=== PATIENT | female | born 1990 | race American Indian/Alaskan Native ===

== ENCOUNTER 2017-10-22 09:49 | Inpatient (IN) | payer OTHER ==
--- NOTE | 2017-10-21 17:50 | History and Physical Report ---
History of Present Illness Date of examination: 10/22/17 Date of admission: 10/22/17 Chief complaint: scheduled repeat csec History of present illness: This is a 27 yo EDC 10/26/17 at 39+4 weeks here for repeat csec. Patient is a patient of [facility] since 9 weeks but has had non compliance from 17-30 weeks. She has a hx of sickle cell trait, anemia and GBS +, hx of depression. Past History Past Medical History: other (depression) Past Surgical History: section Family/Genetic History: diabetes Social history: no significant social history, single. denies: smoking, alcohol abuse, prescription drug abuse - Obstetrical History Expected Date of Delivery: 10/26/17 Actual Gestation: 39 Week(s) 2 Day(s) : 3 Para: 2 Hx # Term Pregnancies: 0 Number of Pregnancies: 0 Spontaneous Abortions: 0 Induced : 0 Number of Living Children: 2 Review of Systems All systems: negative - Physical Exam Breasts: Positive: normal Cardiovascular: Regular rate, Normal S1 Lungs: Positive: Clear to auscultation, Normal air movement Abdomen: Positive: normal appearance, soft, guarding, normal bowel sounds. Negative: distention, tenderness Vulva: both: normal Vagina: Positive: normal moisture Uterus: Positive: normal size Anus/Rectum: Positive: normal perianal skin Extremities: Positive: normal Deep Tendon Reflex Grade: Normal +2 Results All other labs normal. Assessment and Plan A/P IUP 39+2 weeks scheduled repeat csec discussed r/b/a reviewed of repeat csec
[2017-10-22] MEDS: NORMOSOL-R PH 7.4 1,000 ML IV SCH ×3 (10:15→11:36)
[2017-10-22] MEDS ORDERED: REGLAN IV NR (10:30)
[2017-10-22] MEDS ORDERED: BICITRA PO NR (10:30)
[2017-10-22] MEDS ORDERED: PEPCID IV NR (10:30)
[2017-10-22] MEDS ORDERED: PITOCin/NS 20 UNIT/1000ML DRIP 20 UNITS/1,000 ML BAG IV SCH ×2 (10:30→13:00)
[2017-10-22 10:37] LABS: Hematocrit 33.6 % (30.3-42.9); Hemoglobin 11.3 gm/dl (10.1-14.3); Mean Corpuscular HGB Conc 34 % (30-34); Mean Corpuscular Hemoglobin 27 pg (28-32); Mean Corpuscular Volume 80 fl (79-97); Platelet Count 219 K/mm3 (140-440); Red Blood Count 4.22 M/mm3 (3.65-5.03); Red Cell Distribution Width 15.3 % (13.2-15.2)
[2017-10-22] MEDS ORDERED: ANCEF/STERILE WATER 2 GM/20 ML IV ONE (10:58)
[2017-10-22] MEDS ORDERED: ANCEF/STERILE WATER 2 GM/20 ML IV NR (11:00)
--- NOTE | 2017-10-22 11:07 | Anesthesia Consultation ---
Anesthesia Consult and Med Hx Date of service: 10/22/17 - Airway Anesthetic Teeth Evaluation: Good ROM Head & Neck: Adequate Mental/Hyoid Distance: Adequate Mallampati Class: Class II Intubation Access Assessment: Probably Good - Pre-Operative Health Status ASA Pre-Surgery Classification: ASA2 Proposed Anesthetic Plan: Epidural, Spinal - Pulmonary Hx Asthma: No COPD: No Hx Pneumonia: No - Cardiovascular System Hx Hypertension: No - Central Nervous System Hx Seizures: No Hx Psychiatric Problems: No - Endocrine Hx Renal Disease: No Hx End Stage Renal Disease: No Hx Hypothyroidism: Yes Hx Hyperthyroidism: No - Hematic Hx Anemia: Yes Hx Sickle Cell Disease: No - Other Systems Hx Alcohol Use: No
[2017-10-22] MEDS ORDERED: DILAUDID IV PRN (11:08)
[2017-10-22] MEDS ORDERED: PHENERGAN PR PRN (11:08)
[2017-10-22] MEDS ORDERED: NARCAN 0.4 MG/1 ML IV PRN ×2 (11:08→13:00)
[2017-10-22] MEDS ORDERED: PHENERGAN PO PRN (11:08)
[2017-10-22] MEDS ORDERED: ZOFRAN IV PRN (11:08)
[2017-10-22] MEDS ORDERED: BENADRYL IV PRN (11:08)
--- NOTE | 2017-10-22 11:08 | Anesthesia Day of Surgery ---
Anesthesia Day of Surgery - Day of Surgery Patient Examined: Yes Patient H&P Reviewed: Yes Patient is NPO: Yes
[2017-10-22] MEDS ORDERED: NEO SYNEPHRINE/NS Syringe(OR USE) IV ONE (12:00)
[2017-10-22] MEDS ORDERED: SODIUM CHLORIDE FLUSH SYRINGE 10 ML IV SCH (12:00)
[2017-10-22] MEDS ORDERED: WATER FOR IRRIG STERILE IR ONE (12:07)
[2017-10-22] MEDS ORDERED: NACL 0.9% IR ONE (12:07)
[2017-10-22] MEDS ORDERED: ASTRAMORPH PF 10MG/10ML ONE (12:40)
[2017-10-22] MEDS ORDERED: NACL 0.9% 1000 ML 1,000 ML ONE (12:51)
[2017-10-22] MEDS ORDERED: SODIUM CHLORIDE FLUSH SYRINGE 10 ML IV NR (13:00)
[2017-10-22] MEDS ORDERED: ANUCORT-HC PR PRN (13:00)
[2017-10-22] MEDS ORDERED: NORCO 5/325 PO PRN (13:00)
[2017-10-22] MEDS ORDERED: LANSINOH TP PRN (13:00)
[2017-10-22] MEDS ORDERED: MYLICON PO PRN (13:00)
[2017-10-22] MEDS ORDERED: MILK OF MAGNESIA PO PRN (13:00)
[2017-10-22] MEDS ORDERED: PERCOCET 5/325 PO PRN (13:00)
[2017-10-22] MEDS ORDERED: TUCKS PAD TP PRN (13:00)
--- NOTE | 2017-10-22 13:13 | Operative Report ---
Operative Report Operative Report: DATE OF PROCEDURE: 10/22/17 PRE-PROCEDURE DIAGNOSIS: A 27-year-old 3, para 2001 with history of previous section. POST-PROCEDURE DIAGNOSIS: A (XX)-year-old 3, para 2001 with history of previous section PROCEDURE PERFORMED: Repeat section SURGEON: Lizzeth Sosa MD ANESTHESIA: Spinal ESTIMATED BLOOD LOSS: Approximately 800 mL. FINDINGS: Male infant born weighing 7 pounds 5 ounces with Apgars of 8 and 8. DESCRIPTION OF PROCEDURE: The patient was taken to the operating room and given spinal and anesthesia was found to be adequate. The patient was prepped and draped in the usual sterile fashion. An elliptical incision was made over the previous keloid scar and removed. A Bovie was used to transect the subcutaneous tissue to the fascia, which was dissected laterally with curved Lewis scissors. The Ivonne clamps were used to grasp the superior and inferior portions of the fascial incisions and subsequently dissected off with a Bovie and bluntly. The rectus abdominal muscles were divided in the midline. The Taurus O retractor was placed in the incision. The vesicouterine peritoneum was identified, transected, creating the bladder flap. the baby could be visulaized through uterus. A scalpel was used to make a transverse incision in the low uterine segment and extended laterally with hand manipulation. . The head was delivered atraumatically. Mouth and nares were suctioned at the incision. The posterior shoulder was delivered followed by the anterior shoulder and entire body. The cord was clamped twice and cut in between. The was handed off to the awaiting magazine keeper. The placental delivery was spontaneously intact 3-vessel cord. Twenty units of Pitocin in 1 liter of LR was given after placental delivery. The hysterotomy was repaired with 0 vicryl in a running locked fashion. Hemostasis was assured with Tissel and surgicel. . The pelvis was copiously irrigated with warm normal saline. Interceed was placed on the hysterotomy repair. The fascia was reapproximated with 0 PDS in a running fashion. The skin was closed with Jb needle. . The patient tolerated the procedure and was taken to the recovery room in stable condition.
[2017-10-22] MEDS: TORADOL IV PRN (13:20)
[2017-10-22] MEDS: D5LR 1,000 ML IV SCH (18:32)
[2017-10-22] MEDS: ZOLOFT PO SCH (20:31)
[2017-10-23 01:20] LABS: Hematocrit 28.6 % (30.3-42.9); Hemoglobin 9.5 gm/dl (10.1-14.3)
[2017-10-23] MEDS: D5LR 1,000 ML IV SCH (02:06)
[2017-10-23] MEDS: TORADOL IV PRN (04:14)
--- NOTE | 2017-10-23 08:02 | Progress Note ---
Assessment and Plan O: VSS AF PP H/H: 9.5/28.6 A: Stable POD #1 S/P third repeat C/S Anemia P: Iron Routine PP orders Subjective - Subjective Date of service: 10/23/17 Patient reports: appetite normal, voiding normally, pain well controlled, flatus , ambulating normally, other (tolerating soft diet w/o N/V, requesting regular tray) : doing well, nursing well, bottle feeding Objective - Vital Signs Latest vital signs: Vital Signs Temp Pulse Resp BP BP Pulse Ox 10/23/17 04:25 98.4 F 84 20 98/52 10/23/17 00:00 98.1 F 78 20 100/56 10/22/17 20:10 98.2 F 83 20 129/78 10/22/17 14:05 80 10 L 96/51 98 10/22/17 14:00 97.7 F 78 12 98/55 97 10/22/17 13:55 77 10 L 100/55 96 10/22/17 13:50 73 11 L 98/55 97 10/22/17 13:45 77 13 97/52 97 10/22/17 13:40 77 19 97/57 98 10/22/17 13:35 80 19 98/57 98 10/22/17 13:30 81 12 100/57 98 10/22/17 13:25 79 11 L 102/63 98 10/22/17 13:20 96.0 F L 84 11 L 102/56 99 10/22/17 13:15 89 13 104/59 100 10/22/17 13:10 87 20 109/55 100 10/22/17 13:05 95 H 9 L 100/50 100 10/22/17 13:03 100 10/22/17 11:17 109 H 100 10/22/17 11:12 79 100 10/22/17 11:06 98.1 F 10/22/17 10:51 88 100 10/22/17 10:46 92 H 98 10/22/17 10:41 80 100 10/22/17 10:39 96 H 94 10/22/17 10:36 79 100 10/22/17 10:31 68 100 10/22/17 10:30 85 94 Intake and Output 03/28/18 03/29/18 03/29/18 22:59 06:59 14:59 Intake Total 365 1185.833 Output Total 275 1000 Balance 90 185.833 Intake: IV 125 945.833 D5lr 1,000 ml @ 125 mls/ 945.833 hr IV DIRECT ODETTE Rx#: [id number] Left Forearm 125 Oral 240 240 Output: Urine 275 1000 Indwelling Catheter 275 1000 Other: Total, Intake Amount 240 240 Total, Output Amount 275 400 - Exam Breasts: Present: deferred Lungs: Present: Normal air movement Abdomen: Present: normal appearance, soft. Absent: distention, tenderness Uterus: Present: normal, firm, fundal height below umbilicus (3 below U, ML). Absent: bogginess, tenderness Extremities: Absent: edema Incision: Present: normal, dry, intact, dressed - Labs Labs: Abnormal lab results 10/22/17 10/23/17 Range/Units 10:15 01:05 Hgb 9.5 L (10.1-14.3) gm/dl Hct 28.6 L (30.3-42.9) % MCH 27 L (28-32) pg RDW 15.3 H (13.2-15.2) %
[2017-10-23] MEDS ORDERED: FEOSOL PO SCH (10:00)
--- NOTE | 2017-10-23 10:26 | Query-Anemia ---
Kuldip Chacko Date:__10/23/2017 Shank Taper/CARLOS ALBERTO:____Mignon Phone#:__[phone] Exercise your independent professional judgment when responding to this query. Questions asked do not imply a particular answer is desired or expected. We greatly appreciate your clarification on this issue. Clinical Documentation States: 27 Year old female was admitted repeat [facility]. The Operative report on 10/22/2017 states "ESTIMATED BLOOD LOSS: Approximately 800 mL." Clinical Findings Show: 10/22 10/23 Hgb 11.3 9.5 Hct 33.6 28.6 Etiology: [ x] Anemia due to acute blood loss [ ] Anemia due to chronic blood loss [ ] Anemia secondary to ESRD [ ] Anemia secondary to neoplastic disease [ ] Iron deficiency anemia due to malabsorption [ ] GI Bleed from: [ ] Anemia of chronic disease ,Other: [ ] Precipitous Drop in Hemoglobin [ ] Precipitous Drop in Hematocrit [ ] Other: [ ] Unable to determine [ ] Comment/Explanation: Present on Admission: [ ] Yes (Y) [ ] Clinically undeterminable (W) [ ] No (N) Please also document response in your Progress Notes and/or Discharge Summary and indicate if the condition was present on admission. MELISSA
[2017-10-23] MEDS: FEOSOL PO SCH ×2 (10:57→21:17)
[2017-10-23] MEDS: PRENATAL VITAMIN PO SCH (10:57)
[2017-10-23] MEDS: ZOLOFT PO SCH (10:57)
[2017-10-23] MEDS ORDERED: BOOSTRIX IM ONE (13:01)
[2017-10-23] MEDS ORDERED: M-M-R II VACCINE SUB-Q ONE (13:01)
[2017-10-23] MEDS: MOTRIN PO PRN ×2 (16:25→23:10)
[2017-10-24] MEDS: FEOSOL PO SCH (09:19)
[2017-10-24] MEDS: PRENATAL VITAMIN PO SCH (09:19)
[2017-10-24] MEDS: ZOLOFT PO SCH (09:20)
[2017-10-24] MEDS: MOTRIN PO PRN (12:02)
--- NOTE | 2017-10-24 15:51 | Progress Note ---
Assessment and Plan A: POD#2 s/p repeat section, asymptomatic anemia P: Discharge home per pt request with follow up in [address] Sosa Subjective - Subjective Date of service: 10/24/17 Principal diagnosis: s/p repeat section Interval history: No overnight events. Pt strongly requesting hospital discharge. Patient reports: appetite normal, voiding normally, pain well controlled, flatus , ambulating normally, no bowel movement, no nauseated : doing well Objective - Vital Signs Latest vital signs: Vital Signs Temp Pulse Resp BP BP Pulse Ox 10/24/17 08:28 98.4 F 78 18 93/59 98 10/24/17 00:00 98.0 F 72 20 101/73 10/23/17 16:07 99.0 F 73 20 102/63 97 Intake and Output 10/24/17 10/24/17 10/24/17 06:59 14:59 22:59 Other: # Voids Indwelling Catheter 1 - Exam Breasts: Present: deferred Cardiovascular: Present: Regular rate Lungs: Present: Clear to auscultation Abdomen: Present: soft Uterus: Present: fundal height below umbilicus Extremities: Present: normal Incision: Present: intact
--- NOTE | 2017-10-24 15:54 | Discharge Summary ---
Providers - Providers Date of Admission: 10/22/17 09:49 Date of discharge: 10/24/17 Attending physician: ROSIO SOSA MD 10/22/17 13:03 Consult to Mental Health [CONS] Urgent Reason For Exam: hx of pp depression s/p repeat csec on zoloft Place consult to:: psych Notified:: [phone] Was contact made?: No Primary care physician: ROSIO SOSA MD Hospitalization Reason for admission: section Delivery: Procedure: section, repeat low transverse Procedure details: Please see operative note. Incision: intact Other procedures: none complications: none Discharge diagnosis: IUP at term delivered baby: male Hospital course: Pt was admitted for repeat section which she tolerated well. Her postoperative course was uncomplicated and she met discharge criteria on POD#2. She will follow up in the office in two weeks for an incision check with Dr Sosa. Condition at discharge: Stable Disposition: DC-01 TO HOME OR SELFCARE - Discharge Diagnoses (1) Term of male Status: Acute (2) S/P section Status: Acute (3) Anemia Status: Acute Qualifiers: Anemia type: unspecified type Qualified Code(s): D64.9 - Anemia, unspecified Plan - Provider Discharge Summary Activity: routine, no sex for 6 weeks, no heavy lifting 4 weeks, no strenuous exercise Diet: routine Instructions: routine Additional instructions: [] Smoking cessation referral if applicable(refer to patient education folder for contact #) [] Refer to [facility]'s [facility] Booklet Call your doctor immediately for: * Fever > 100.5 * Heavy vaginal bleeding ( >1 pad per hour) * Severe persistent headache * Shortness of breath * Reddened, hot, painful area to leg or breast * Drainage or odor from incision. * Keep incision clean and dry at all times and follow doctor's instructions regarding bathing/showering Please schedule your son's circumcision before he is one month old. - Follow up plan Follow up: ROSIO SOSA MD [Primary Care Provider] - 11/05/17 (incision check )
[2017-10-24 17:58] VITALS: BP 96/59
== END 2017-10-24 18:25 | disposition home or self-care (01) | DRG 765 ==
LOC: APU 09:49 → OB 14:35
PROVIDERS: ADMIT Obstetrics & Gynecology; ATTEND Obstetrics & Gynecology
PROC: 10D00Z1 Extraction of Products of Conception, Low, Open Approach (ICD-10-PCS; principal; 2017-10-22)
DX: O34.211 Maternal care for low transverse scar from previous cesarean delivery (principal); D62 Acute posthemorrhagic anemia; Z3A.39 39 weeks gestation of pregnancy; Z37.0 Single live birth; O99.284 Endocrine, nutritional and metabolic diseases complicating childbirth; E03.9 Hypothyroidism, unspecified; O99.02 Anemia complicating childbirth; D57.3 Sickle-cell trait; O99.824 Streptococcus B carrier state complicating childbirth; O99.344 Other mental disorders complicating childbirth; F32.9 Major depressive disorder, single episode, unspecified
CPT/HCPCS: 36415; 85014; 85018; 85027; 86592; 86850; 86900; 86901; 88307; 99211; C9250; G0463; J0690; J1170; J1200; J1885; J2274; J2370; J2590; J2765; J7030; J7121; Q0169